=== PATIENT | female | born 1985 | race Caucasian/White ===

== ENCOUNTER 2018-03-07 15:56 | Inpatient (IN) | payer OTHER, SELFPAY ==
[2018-03-07 16:46] LABS: Bilirubin Negative (Negative); Blood, Urine Moderate (Negative); Clarity CLOUDY (Clear); Glucose, Urine (Dipstick) Negative (Negative); Leukocyte Large (Negative); Nitrite Positive (Negative); Pregnancy Test - Urine (BHCG) Negative (Negative); Pregu Control Background? CLEAR/WHITE (CLR/WHITE); Pregu Control Bar Appear? YES (CONTROL BAR); Protein, Urine (Dipstick) Negative (Neg-Trace); Specific Gravity 1.014 (1.002-1.036); Specific Gravity, Urine 1.014 (1.002-1.036); pH, Urine 6.5 (5.0-9.0)
[2018-03-07 16:47] LABS: #Basophils 0.1 thou/uL (0.0-0.2); #Lymphocytes 0.6 thou/uL (1.20-3.40); #Monocytes 0.8 thou/uL (0.11-0.59); #Neutrophils 11.3 thou/uL (1.40-6.50); %Basophils 0.4 % (0.0-1.0); %Eosinophils 0.1 % (0.0-10.0); %Lymphocytes 5.1 % (21.0-51.0); %Neutrophils 88.4 % (42.0-75.0); Hemoglobin 15.2 g/dL (12.0-16.0); Mean Corpuscular HGB CONC 34.3 g/dL (32.0-36.0); Mean Corpuscular Volume 87.6 fl (81.0-99.0); Mean Platelet Volume 6.3 fL (7.4-10.4); Platelet Count 221 thou/uL (130-400); Red Blood Cell (RBC) Count 5.07 mill/uL (4.20-5.40); White Blood Cell (WBC) Count 12.8 thou/uL (4.8-10.8)
[2018-03-07 16:50] LABS: Bacteria/HPF 4+ HPF (None Seen); Hyaline Casts/LPF 0-3 HYALINE CAST LPF (0-3 Hyaline); Squamous Epithelial 0-3 HPF (0-3)
[2018-03-07 17:11] LABS: ALT (SGPT) 80 U/L (8-55); AST (SGOT) 66 U/L (5-34); Albumin 4.8 g/dL (3.5-5.0); Alkaline Phosphatase 141 U/L (40-150); Anion Gap 18 mmol/L (10-20); BUN (Urea Nitrogen) 9 mg/dL (7.0-18.7); Bilirubin, Total 2.2 mg/dL (0.2-1.2); Calc. Creatinine Clearance 0 mL/min (70-130); Calcium 10.1 mg/dL (7.8-10.44); Carbon Dioxide 21 mmol/L (22-29); Chloride 100 mmol/L (98-107); Estimated GFR-MDRD 82; Globulin 3.4 g/dL (2.4-3.5); Glucose 116 mg/dL (70-105); Potassium 3.8 mmol/L (3.5-5.1); Protein, Total 8.2 g/dL (6.0-8.3); Sodium 135 mmol/L (136-145)
[2018-03-07] MEDS ORDERED: Morphine 4 MG/ML VIAL ONE (17:23)
[2018-03-07] MEDS ORDERED: Ondansetron ODT 4 MG TAB ONE (17:24)
[2018-03-07] MEDS ORDERED: cefTRIAXone\\ROCEPHIN 2 GM in Sodium Chloride 0.9% 100 ML IVPB ONE (17:30)
[2018-03-07] MEDS ORDERED: Ibuprofen 800 MG TAB ONE (20:05)
[2018-03-07 20:37] LABS: Lactic Acid 2.6 mmol/L (0.5-2.2)
[2018-03-07 22:48] VITALS: BMI 23.3
[2018-03-07] MEDS: Sodium Chloride 0.9% 1,000 ML IV SCH (23:00)
[2018-03-07] MEDS ORDERED: Sodium Chloride 0.9% 1,000 ML IV SCH (23:17)
[2018-03-07] MEDS ORDERED: Acetaminophen 325 MG TAB PO PRN (23:17)
[2018-03-07] MEDS ORDERED: Ondansetron HCl/PF 4 MG/2 ML Vial IVP PRN (23:17)
[2018-03-07] MEDS ORDERED: Ondansetron ODT 4 MG TAB SL PRN (23:17)
[2018-03-08] MEDS ORDERED: Ondansetron HCl/PF 4 MG/2 ML Vial IVP PRN (01:16)
[2018-03-08] MEDS ORDERED: Ondansetron ODT 4 MG TAB PO PRN (01:16)
[2018-03-08] MEDS: Acetaminophen 500 MG TAB PO PRN ×2 (04:43→21:03)
[2018-03-08] MEDS: Ketorolac Tromethamine 30 MG/ML VIAL IVP SCH ×3 (04:45→18:21)
[2018-03-08 05:09] LABS: ALT (SGPT) 74 U/L (8-55); AST (SGOT) 50 U/L (5-34); Albumin 3.4 g/dL (3.5-5.0); Alkaline Phosphatase 109 U/L (40-150); Anion Gap 9 mmol/L (10-20); BUN (Urea Nitrogen) 7 mg/dL (7.0-18.7); Bilirubin, Total 1.5 mg/dL (0.2-1.2); Calc. Creatinine Clearance 126 mL/min (70-130); Calcium 7.8 mg/dL (7.8-10.44); Carbon Dioxide 20 mmol/L (22-29); Chloride 109 mmol/L (98-107); Estimated GFR-MDRD Greater than 90; Globulin 2.3 g/dL (2.4-3.5); Glucose 150 mg/dL (70-105); Potassium 3.2 mmol/L (3.5-5.1); Protein, Total 5.7 g/dL (6.0-8.3); Sodium 135 mmol/L (136-145)
[2018-03-08 05:55] LABS: Band 12 % (5-11); Hemoglobin 12.3 g/dL (12.0-16.0); Lymphocytes 4 % (21-51); MDiff Complete? YES; Mean Corpuscular Volume 88.4 fl (81.0-99.0); Mean Platelet Volume 7.2 fL (7.4-10.4); Monocytes 5 % (0-10); Neutrophil 79 % (42-75); Platelet Count 187 thou/uL (130-400); RBC Distribution Width 12.2 % (11.5-14.5); Red Blood Cell (RBC) Count 4.11 mill/uL (4.20-5.40); White Blood Cell (WBC) Count 9.3 thou/uL (4.8-10.8)
[2018-03-08] MEDS ORDERED: cefTRIAXone\\ROCEPHIN 1 GM, Syringe 0.4 ML in Sterile Water 9.6 ML SLOW IVP SCH (06:00)
--- NOTE | 2018-03-08 06:44 | HP ---
DATE OF ADMISSION: 03/08/2018 PRIMARY CARE PROVIDER: Carisa saravia. CHIEF COMPLAINT: Abdominal and back pain. HISTORY OF PRESENT ILLNESS: This is a 32-year-old female who presents to [facility] Emergency Department complaining of abdominal and low back pain over the last 2 weeks , worse in the last several days prior to admission. The patient apparently had been treated with ov [id number] AZO without relief of her symptoms. The patient had associated emesis due to the pain when arriving to the emergency room and stated that her lower abdomen and lower back had stabbing an d sharp sensation. The patient also admitted to burning with urination, chills, flank pain, but no s pecific trauma, injury, recent surgical intervention, exposure history or travel. The patient denied any specific change to her bowel movements, diarrhea, or recent . The patient denies any c hronic or recurrent urinary tract infections, but states she was treated approximately 2 years ago fo r similar back pain and urine infection. In the emergency room, the patient underwent general evalua tion with urinalysis showing moderate blood, positive nitrite and leukocyte esterase. The patient wa s also noted with low grade temperature up to 100.2 degrees Fahrenheit and pulse in the 130s meeting sepsis criteria. The patient received intravenous normal saline x2 liters in addition to Rocephin 2 grams x1 dose, morphine sulfate, Zofran and 800 mg of Motrin. PAST MEDICAL HISTORY: Urinary tract infection 2 years prior to this evaluation. PAST SURGICAL HISTORY: Status post section x4. CURRENT MEDICATIONS: Reviewed and negative. ALLERGIES: No known drug allergies. FAMILY HISTORY: No inheritable diseases per patient report. SOCIAL HISTORY: The patient is and residing in the [place], [place] area. No current alcohol, t obacco, or illicit drug use. REVIEW OF SYSTEMS: The following complete review of systems was negative, unless otherwise mentioned in the HPI or below: Constitutional: Weight loss or gain, ability to conduct usual activities. Sk in: Rash, itching. Eyes: Double vision, pain. ENT/Mouth: Nose bleeding, neck stiffness, pain, te nderness. Cardiovascular: Palpitations, dyspnea on exertion, orthopnea. Respiratory: Shortness of breath, wheezing, cough, hemoptysis, fever or night sweats. Gastrointestinal: Poor appetite, abdom inal pain, heartburn, nausea, vomiting, constipation, or diarrhea. Genitourinary: Urgency, frequenc y, dysuria, nocturia. Musculoskeletal: Pain, swelling. Neurologic/Psychiatric: Anxiety, depressio n. Allergy/Immunologic: Skin rash, bleeding tendency. Otherwise negative except as stated per HPI. PHYSICAL EXAMINATION: VITAL SIGNS: On admission; blood pressure 137/73, pulse 130, respiratory rate 18, temperature 100.2 degrees Fahrenheit, and O2 saturation 99% on room air. GENERAL APPEARANCE: This is a 32-year-old female, alert and oriented x3, pleasant, conversa nt, in no acute distress. HEENT: Pupils are equal, round, and reactive to light and accommodation. Extraocular muscles are in tact. No scleral icterus, no conjunctival injection. Nares patent. OP is clear. Oral mucosa dry. NECK: Supple, no cervical adenopathy, no thyromegaly, no carotid bruits, no JVD appreciated. Cervic al spine with full active and passive range of motion. No meningeal signs appreciated. CHEST: Lungs are clear to auscultation bilaterally. CARDIOVASCULAR: S1, S2, without noted murmur, rub, or gallop. ABDOMEN: Rounded, soft with bowel sounds positive in all four quadrants. No palpable mass. Mild te nderness to palpation in the right and left upper quadrant. Positive CVA tenderness bilaterally. EXTREMITIES: Warm and dry with fair turgor. No clubbing, cyanosis or asymmetric edema appreciated. Pulses are palpable distally at the dorsalis pedis, posterior tibial, and popliteal arteries bilater ally. Capillary refill less than 2 seconds. NEUROLOGIC: Cranial nerves II-XII are grossly intact. No focal or lateralizing signs appreciated. PERTINENT LABORATORY AND X-RAY FINDINGS: Sodium 135, potassium 3.8, chloride 100, CO2 of 21, BUN 9, creatinine 0.81, estimated GFR of 82, and glucose 116. Lactic acid level ranged between 2.6-3.3. Ca lcium 10.1. Total bilirubin 2.2, AST 66, ALT of 80, and alkaline phosphatase 141. CBC showed a whit e blood cell count of 12.8, hemoglobin 15, hematocrit 44, platelet count 221 with 88% neutrophils. U rinalysis positive for blood, nitrite and large leukocyte esterase with 11-20 rbc's per high power fi eld and 50 to too numerous to count wbc's per high power field. Urine beta-hCG negative on 8. ASSESSMENT AND PLAN: 1. Sepsis secondarily to acute pyelonephritis. The patient will be admitted to the medical floor. We will continue Rocephin 2 grams IV q.24 hours. Pending urine and blood culture results. Continue intravenous normal saline at 100 mL per hour. Serial lactic acid per protocol. 2. Acute pyelonephritis. Continue treatment as outlined in #1. Continue intravenous normal saline for hydration. Pain control with Toradol 30 mg IV q.6 hours. 3. Sinus tachycardia. Secondarily to #1. Improved with intravenous fluids. Continue IV fluids as outlined previously and monitor clinically. 4. Lactic acidosis. Secondarily to sepsis and acute pyelonephritis. Continue serial monitoring and treat underlying process. 5. Prophylaxis. Sequential compression devices while in bed. Pepcid 20 mg p.o. b.i.d. 6. Code status is FULL. Surrogate medical decision maker is patient's spouse.
[2018-03-08] MEDS: Famotidine 20 MG TAB PO SCH ×2 (09:15→19:55)
[2018-03-08] MEDS: Sodium Chloride 0.9% 1,000 ML IV SCH (10:59)
--- NOTE | 2018-03-08 13:01 | CT ---
ABDOMEN CT WITHOUT CONTRAST PELVIC CT WITHOUT CONTRAST: HISTORY: Left CVA tenderness, sepsis. Evaluate for obstructive uropathy. COMPARISON: None. TECHNIQUE: Abdomen and pelvis CT is performed without IV or oral contrast. Coronal reformatted images are submi tted for interpretation. FINDINGS: ABDOMEN CT: Lung bases are clear. Heart size is normal. No significant pericardial fluid. The thoracic aorta a nd abdominal aorta have a normal caliber. No periaortic fat stranding. Symmetric attenuation of the psoas muscles. Limited evaluation of the solid organs by lack of IV contrast. No solid organ abnormality. There is CT evidence of cholelithiasis without evidence of cholecystitis. No gastrohepatic, retrocrural, or periportal lymphadenopathy. There are nonobstructing 1-2 mm calcifications in the right renal pelvis. No evidence of hydronephro sis or perinephric fat stranding. The right ureter has a normal caliber. No hydroureter, periureter al fat stranding, or ureterolithiasis. There is a nonobstructing 2 mm calculus in the upper pole of the left kidney. There is no significan t dilatation of the left intrarenal collecting system. There is mild left perinephric fat stranding. Visualized left ureter has a normal caliber. No hydroureter, periureteral fat stranding, or ureter olithiasis on the expected course of the left ureter. There is a small amount of fluid in both pericolic gutters (left greater than right). There is stran ding of the abdominal mesentery in the left hemiabdomen. Limited evaluation of the alimentary canal due to the lack of oral contrast. No evidence of bowel obstruction. Ileocecal junction is normal. Normal-caliber appendix. Scattered fecal material in a nondistended, nondilated colon. At stated above, there is stranding of the abdominal mesentery in the left hemiabdomen. No mesenteri c mass, lymphadenopathy, or significant free fluid. PELVIC CT: There is a small amount of free fluid in the pelvis. Adnexal structures and uterus are grossly unrem arkable. No calcification of the urinary bladder. No pelvic mass, lymphadenopathy, or free air. No lytic or blastic lesions in the osseous structures. IMPRESSION: 1. Bilateral nonobstructing intrarenal calculi. 2. There is a small amount of left perinephric fat stranding predominantly at the level of the lower pole of the left kidney. Correlate clinically for possible pyelonephritis. No evidence of associat ed obstructing calculus. The possibility of a recently passed calculus cannot be completely excluded . No calcification in the urinary bladder. 3. Normal caliber appendix. 4. Nonspecific mild stranding of the left abdominal mesentery, nonspecific. Correlate for mesenteri tis. 5. A small amount of free fluid in both pericolic gutters, left greater than right. The presence of fluid is presumed to be reactive. POS: JEANINE
--- NOTE | 2018-03-08 18:17 | PDOC.PN ---
- Subjective Encounter Start Date: 03/08/18 Encounter Start Time: 07:30 Subjective: has some left lower back pain -: no nausea now, feels better from admission -: is still breast feeding her 1 yr old baby, no c/o breast pain - Objective Resuscitation Status: Resuscitation Status FULL:Full Resuscitation MAR Reviewed: Yes Vital Signs & Weight: Vital Signs (12 hours) Temp Pulse Resp BP Pulse Ox 03/08/18 16:34 98.2 F 84 18 98/65 95 03/08/18 12:22 98.4 F 84 16 90/52 L 95 03/08/18 08:25 97.9 F 74 18 87/51 L 96 03/08/18 08:00 97.9 F 74 18 96 I&O: 03/07/18 03/08/18 03/09/18 06:59 06:59 06:59 Intake Total 1300 Balance 1300 Result Diagrams: 03/08/18 03:55 03/08/18 03:55 Phys Exam - Physical Examination HEENT: PERRLA, moist MMs Neck: no JVD, supple Respiratory: no wheezing, no rales Cardiovascular: RRR, no significant murmur Gastrointestinal: soft, no distention, positive bowel sounds mild left cva angle tenderness Musculoskeletal: no edema, pulses present Neurological: non-focal, moves all 4 limbs Psychiatric: normal affect, A&O x 3 Dx/Plan (1) Acute pyelonephritis Code(s): N10 - ACUTE PYELONEPHRITIS Status: Acute Comment: left (2) Sepsis Code(s): A41.9 - SEPSIS, UNSPECIFIED ORGANISM Status: Acute Qualifiers: Sepsis type: sepsis due to unspecified organism Qualified Code(s): A41.9 - Sepsis, unspecified organism - Plan CT stone protocol results reviewed -: Had pain radiating to groin area from lumbar area prior to arrival, likely -: -passed stone, has signs of pyelo on left side -: tmax of 100, prelim cultures are growing gnr, will f/u -: is on ceftriaxone, gentle iv hyrdration, apprec help from lact practice management consultant * . Review of Systems - Medications/Allergies Allergies/Adverse Reactions: Allergies Allergy/AdvReac Type Severity Reaction Status Date / Time No Known Allergies Allergy Verified 03/07/18 22:51 Medications: Current Medications Acetaminophen (Tylenol) 1,000 mg PO Q6H PRN PRN Reason: Headache/Fever or Mild Pain Last Admin: 03/08/18 04:43 Dose: 1,000 mg Famotidine (Pepcid) 20 mg PO BID [facility] Last Admin: 03/08/18 09:15 Dose: 20 mg Ceftriaxone Sodium 2 gm/ (Sodium Chloride) 100 mls @ 200 mls/hr IVPB 1800 BEL Sodium Chloride (Normal Saline 0.9%) 1,000 mls @ 100 mls/hr IV .Q10H [facility] Last Admin: 03/08/18 10:59 Dose: 1,000 mls Ketorolac Tromethamine (Toradol) 30 mg IVP Q6HR [facility] Stop: 03/13/18 06:01 Last Admin: 03/08/18 10:59 Dose: 30 mg Ondansetron HCl (Zofran Odt) 4 mg PO Q6H PRN PRN Reason: Nausea/Vomiting Ondansetron HCl (Zofran) 4 mg IVP Q6H PRN PRN Reason: Nausea/Vomiting
[2018-03-08] MEDS: cefTRIAXone\\ROCEPHIN 2 GM in Sodium Chloride 0.9% 100 ML IVPB SCH (18:21)
[2018-03-09] MEDS: Ketorolac Tromethamine 30 MG/ML VIAL IVP SCH ×4 (00:29→18:31)
[2018-03-09] MEDS: Sodium Chloride 0.9% 1,000 ML IV SCH ×3 (00:30→19:58)
[2018-03-09 07:04] LABS: #Lymphocytes 0.9 thou/uL (1.20-3.40); #Monocytes 0.7 thou/uL (0.11-0.59); %Basophils 0.1 % (0.0-1.0); %Eosinophils 0.4 % (0.0-10.0); %Lymphocytes 9.8 % (21.0-51.0); %Monocytes 8.5 % (0.0-10.0); %Neutrophils 81.1 % (42.0-75.0); Hemoglobin 11.9 g/dL (12.0-16.0); Mean Corpuscular HGB CONC 34.6 g/dL (32.0-36.0); Mean Corpuscular Hemoglobin 30.8 pg (27.0-31.0); Mean Platelet Volume 6.6 fL (7.4-10.4); Platelet Count 174 thou/uL (130-400); RBC Distribution Width 12.1 % (11.5-14.5); Red Blood Cell (RBC) Count 3.85 mill/uL (4.20-5.40); White Blood Cell (WBC) Count 8.6 thou/uL (4.8-10.8)
[2018-03-09 07:35] LABS: Anion Gap 11 mmol/L (10-20); BUN (Urea Nitrogen) 4 mg/dL (7.0-18.7); Calc. Creatinine Clearance 143 mL/min (70-130); Calcium 8.3 mg/dL (7.8-10.44); Carbon Dioxide 20 mmol/L (22-29); Chloride 109 mmol/L (98-107); Estimated GFR-MDRD Greater than 90; Glucose 93 mg/dL (70-105); Potassium 3.2 mmol/L (3.5-5.1); Sodium 137 mmol/L (136-145)
[2018-03-09] MEDS: Famotidine 20 MG TAB PO SCH ×2 (08:43→19:59)
[2018-03-09] MEDS: Acetaminophen 500 MG TAB PO PRN (09:49)
--- NOTE | 2018-03-09 10:32 | ULT ---
ULTRASOUND ABDOMEN LIMITED: (RIGHT UPPER QUADRANT) DATE: 03/09/18. HISTORY: A 32-year-old female with sepsis and cholelithiasis demonstrated on CT. Rule out cholecystitis. FINDINGS: Gallbladder: Multiple gallstones within a contracted gallbladder. A typical one of these gallstone i s approximately 20 mm. Gallbladder wall thickness is 4 mm. It is uncertain whether this thickening represents acute cholecystitis or is due to the contracted state of the gallbladder. No sonographic Crews's sign. No pericholecystic fluid. Common duct: 3 mm. Liver: echogenicity is slightly heterogeneous, suggestive of fatty liver (confirmed on the noncontras t CT of 03/08/18). Pancreas: No gross sonographic abnormality identified. Common duct 3 mm. Right kidney: No hydronephrosis. IMPRESSION: 1. Positive for cholelithiasis. 2. Mural thickening of the gallbladder could be due to the contracted state of the gallbladder, and does not necessarily imply acute cholecystitis. 3. Hepatic steatosis. JAIME Canchola POS: JEANINE
--- NOTE | 2018-03-09 10:55 | PDOC.PN ---
- Subjective Encounter Start Date: 03/09/18 Encounter Start Time: 07:00 Subjective: still has lower back pain radiating to suprapubic area -: no right upper quadrant pain or nausea - Objective Resuscitation Status: Resuscitation Status FULL:Full Resuscitation MAR Reviewed: Yes Vital Signs & Weight: Vital Signs (12 hours) Temp Pulse Resp BP Pulse Ox 03/09/18 08:00 99.4 F 88 16 108/71 100 03/09/18 05:08 100.1 F H 92 14 105/66 03/09/18 00:20 99.2 F 86 18 111/71 98 I&O: 03/08/18 03/09/18 03/10/18 06:59 06:59 06:59 Intake Total 1300 2400 Balance 1300 2400 Result Diagrams: 03/09/18 06:47 03/09/18 06:47 Phys Exam - Physical Examination HEENT: PERRLA, moist MMs Neck: no JVD, supple Respiratory: no wheezing, no rales Cardiovascular: RRR, no significant murmur Gastrointestinal: soft, no distention, positive bowel sounds mild left cva tenderness Musculoskeletal: no edema, pulses present Neurological: non-focal, moves all 4 limbs Psychiatric: normal affect, A&O x 3 Dx/Plan (1) Acute pyelonephritis Code(s): N10 - ACUTE PYELONEPHRITIS Status: Acute Comment: left (2) Sepsis Code(s): A41.9 - SEPSIS, UNSPECIFIED ORGANISM Status: Acute Qualifiers: Sepsis type: sepsis due to unspecified organism Qualified Code(s): A41.9 - Sepsis, unspecified organism (3) Cholelithiasis Code(s): K80.20 - CALCULUS OF GALLBLADDER W/O CHOLECYSTITIS W/O OBSTRUCTION Status: Chronic Qualifiers: Cholelithiasis location: gallbladder Cholecystitis presence: without cholecystitis Biliary obstruction: without biliary obstruction Qualified Code(s): K80.20 - Calculus of gallbladder without cholecystitis without obstruction - Plan is on ceftriaxone -: urine cs growing e.coli sensitive to quinolones -: tmax of 100, still has pain in cva left -: usg ruq shows cholelithiasis, clinically no ruq pain -: continue gentle iv hydration, dc plan in am if stable * . Review of Systems - Medications/Allergies Allergies/Adverse Reactions: Allergies Allergy/AdvReac Type Severity Reaction Status Date / Time No Known Allergies Allergy Verified 03/07/18 22:51 Medications: Current Medications Acetaminophen (Tylenol) 1,000 mg PO Q6H PRN PRN Reason: Headache/Fever or Mild Pain Last Admin: 03/09/18 09:49 Dose: 1,000 mg Famotidine (Pepcid) 20 mg PO BID [facility] Last Admin: 03/09/18 08:43 Dose: 20 mg Ceftriaxone Sodium 2 gm/ (Sodium Chloride) 100 mls @ 200 mls/hr IVPB 1800 [facility] Last Admin: 03/08/18 18:21 Dose: 100 mls Sodium Chloride (Normal Saline 0.9%) 1,000 mls @ 100 mls/hr IV .Q10H [facility] Last Admin: 03/09/18 09:49 Dose: 1,000 mls Ketorolac Tromethamine (Toradol) 30 mg IVP Q6HR [facility] Stop: 03/13/18 06:01 Last Admin: 03/09/18 04:47 Dose: 30 mg Ondansetron HCl (Zofran Odt) 4 mg PO Q6H PRN PRN Reason: Nausea/Vomiting Last Admin: 03/09/18 04:47 Dose: 4 mg Ondansetron HCl (Zofran) 4 mg IVP Q6H PRN PRN Reason: Nausea/Vomiting
[2018-03-09] MEDS: cefTRIAXone\\ROCEPHIN 2 GM in Sodium Chloride 0.9% 100 ML IVPB SCH (18:32)
[2018-03-09] MEDS: Docusate 100 MG CAP PO SCH (19:59)
[2018-03-10] MEDS: Ketorolac Tromethamine 30 MG/ML VIAL IVP SCH ×3 (00:33→12:36)
[2018-03-10 04:59] LABS: #Eosinphils 0.1 thou/uL (0.0-0.7); #Lymphocytes 1.8 thou/uL (1.20-3.40); #Monocytes 0.5 thou/uL (0.11-0.59); #Neutrophils 3.6 thou/uL (1.40-6.50); %Basophils 0.5 % (0.0-1.0); %Eosinophils 1.6 % (0.0-10.0); %Monocytes 7.7 % (0.0-10.0); %Neutrophils 60.3 % (42.0-75.0); Mean Corpuscular HGB CONC 34.3 g/dL (32.0-36.0); Mean Corpuscular Hemoglobin 30.4 pg (27.0-31.0); Mean Corpuscular Volume 88.7 fl (81.0-99.0); Mean Platelet Volume 7.1 fL (7.4-10.4); Platelet Count 193 thou/uL (130-400); White Blood Cell (WBC) Count 5.9 thou/uL (4.8-10.8)
[2018-03-10] MEDS: Sodium Chloride 0.9% 1,000 ML IV SCH (06:07)
[2018-03-10] MEDS: Docusate 100 MG CAP PO SCH (08:43)
[2018-03-10] MEDS: Famotidine 20 MG TAB PO SCH (08:43)
[2018-03-10] MEDS ORDERED: Polyethylene Glycol 3350 17 GM Packet PER TUBE SCH (09:00)
--- NOTE | 2018-03-10 11:23 | PDOC.PN ---
- Subjective Encounter Start Date: 03/10/18 Encounter Start Time: 09:30 Subjective: feels better, no abd pain or nausea -: no ruq pain - Objective Resuscitation Status: Resuscitation Status FULL:Full Resuscitation MAR Reviewed: Yes Vital Signs & Weight: Vital Signs (12 hours) Temp Pulse Resp BP Pulse Ox 03/10/18 10:59 98.2 F 82 16 98/68 98 03/10/18 08:00 98.2 F 73 18 95/58 L 97 03/10/18 04:00 98.5 F 81 16 105/70 97 03/10/18 00:00 98.8 F 70 16 122/80 99 I&O: 03/09/18 03/10/18 03/11/18 06:59 06:59 06:59 Intake Total 2400 2550 Output Total 900 Balance 2400 1650 Result Diagrams: 03/10/18 03:51 03/09/18 06:47 Phys Exam - Physical Examination HEENT: PERRLA, moist MMs Neck: no JVD, supple Respiratory: no wheezing, no rales Cardiovascular: RRR, no significant murmur Gastrointestinal: soft, non-tender, no distention, positive bowel sounds Musculoskeletal: no edema, pulses present Neurological: non-focal, moves all 4 limbs Psychiatric: normal affect, A&O x 3 Dx/Plan (1) Acute pyelonephritis Code(s): N10 - ACUTE PYELONEPHRITIS Status: Acute Comment: left (2) Sepsis Code(s): A41.9 - SEPSIS, UNSPECIFIED ORGANISM Status: Acute Qualifiers: Sepsis type: Escherichia coli Qualified Code(s): A41.51 - Sepsis due to Escherichia coli [E. coli] (3) Cholelithiasis Code(s): K80.20 - CALCULUS OF GALLBLADDER W/O CHOLECYSTITIS W/O OBSTRUCTION Status: Chronic Qualifiers: Cholelithiasis location: gallbladder Cholecystitis presence: without cholecystitis Biliary obstruction: without biliary obstruction Qualified Code(s): K80.20 - Calculus of gallbladder without cholecystitis without obstruction - Plan hemostable -: levaquin for 7 days -: dc pt home * .
[2018-03-10] MEDS: Acetaminophen 500 MG TAB PO PRN (12:39)
[2018-03-10 14:43] VITALS: BP 111/78; TEMP 98.4
[2018-03-11 01:19] LABS: Chlamydia by PCR Not Detected (NotDetected); GC by PCR Not Detected (NotDetected)
--- NOTE | 2018-03-12 07:29 | DIS ---
DATE OF ADMISSION: 03/07/2018 DATE OF DISCHARGE: 03/10/2018 DISCHARGE DISPOSITION: Home. PRIMARY DISCHARGE DIAGNOSES: Left-sided pyelonephritis with sepsis, nephrolithiasis with no obvious obstruction at present, cholelithiasis with no cholecystitis. PROCEDURES DONE DURING HOSPITALIZATION: Abdominal and pelvic CAT scan, stone protocol done revealed bilateral nonobstructing intrarenal calculi. There is a small amount of left perinephric fat stranding predominantly at the level of lower pole of the left kidney. Suggestive of recently passed stone versus pyelonephritis. Abdominal ultrasound done showed cholelithiasis with no evidence of cholecystitis, hepatics steatosis seen. H and H 11 and 31, platelet count 193,000. Had 12% bands on admission. Total bilirubin 1.5, AST 50, ALT 74, alk phos 109, albumin is 3.4. Urine test was negative. Urine culture grew E. coli, sensitive to quinolones. Blood cultures x2, no growth. Vaginal triple screen was negative. DISCHARGE MEDICATION: Levaquin 500 mg p.o. daily for another 7 days. Motrin p.r.n. for pain. ALLERGIES: No known drug allergies. DISCHARGE PLAN: Patient is to follow up with primary care physician in 1 week. BRIEF COURSE DURING HOSPITALIZATION: Patient initially got admitted on the with complaints of abdominal and back pain. She had left CVA angle tenderness and her UA was positive for UTI. The patient was septic as well, on arrival with bandemia. She was placed on IV antibiotics and hoffman cultured. Her CT stone protocol revealed nonobstructive nephrolithiasis. The patient was also concerned about possible cholecystitis and a right upper quadrant abdominal ultrasound was obtained which showed cholelithiasis, but no evidence of cholecystitis. The patient did not have any Crews sign or right upper quadrant pain at all. She has responded well to IV ceftriaxone and has been switched over to Levaquin to be continued for another 7 days. Likely, patient had a stone that passed causing pyelonephritis. She is hemodynamically stable and has been afebrile for the last 24 hours now. She is tolerating oral diet and will be shortly discharged home. Please see a [id number] documentation on [facility] for the day of discharge. [facility]
== END 2018-03-10 15:13 | disposition home or self-care (01) | DRG 872 ==
LOC: ERS 15:56 → T4-A 20:10
PROVIDERS: ADMIT Internal Medicine; ATTEND Internal Medicine
DX: A41.51 Sepsis due to Escherichia coli [E. coli] (principal); E87.2 Acidosis; N10 Acute pyelonephritis; K80.20 Calculus of gallbladder without cholecystitis without obstruction; N20.0 Calculus of kidney
CPT/HCPCS: 36415; 74176; 76705; 80048; 80053; 81003; 81015; 81025; 83605; 85007; 85025; 85027; 87040; 87077; 87086; 87186; 87480; 87491; 87510; 87591; 87660; 96361; 96365; 96375; A4216; J0696; J1885; J2270; J7050; Q0162